=== PATIENT | male | born 1985 | race Caucasian/White ===

== ENCOUNTER → 2020-07-02 08:20 | Outpatient (CLI) | payer BC, SELFPAY ==
[2020-05-15 08:38] VITALS: BMI 30.1
--- NOTE | 2020-07-02 09:04 | RAD_ITS ---
STUDY: X-RAY CHEST REASON FOR EXAM: Male, 35 years old. F/U YEARLY CXR. PATIENT STATES HE HAS A HISTORY OF MELANOMA 4 YRS AGO. TECHNIQUE: PA and lateral views of the chest. COMPARISON: None. FINDINGS: The lungs are clear and expanded. There is no demonstrated pleural abnormality. Normal size heart. Normal mediastinum and johanna. Normal visualized pulmonary arteries. Normal visualized aortic arch and descending thoracic aorta. Normal visualized thoracic spine. Normal visualized ribs, clavicles, and shoulders. There is no demonstrated abnormality of the visualized soft tissue structures of the upper abdomen. RAD/Chest PA and Lateral IMPRESSION: Normal x-ray examination of the chest. Electronically Signed: Madi Yañez MD at 16:50 EDT Tel , Service support ,
[2020-07-02 10:38] LABS: AST(SGOT) 14 U/L (15-37); Alanine Aminotransfer ALT/SGPT 26 U/L (16-61); Alkaline Phosphatase 59 U/L (45-117); Bilirubin, Direct 0.15 mg/dL (0.00-0.30); LDH 155 U/L (87-241)
[2020-07-04 20:07] LABS: Alkaline Phosphatase, Serum 55 IU/L (39-117); Bone Fraction 58 % (12-68); Liver Fraction 40 % (13-88)
[2020-07-05 02:25] LABS: Intestinal Fraction 1 % (0-18)
== END ==
PROVIDERS: Referring Provider Surgery; Visit Provider Surgery
DX: Z85.820 Personal history of malignant melanoma of skin (principal)
CPT/HCPCS: 36415; 71046; 82247; 82248; 83615; 84075; 84080; 84450; 84460

== ENCOUNTER → 2020-12-06 | Outpatient (CLI) | payer BC, SELFPAY ==
--- NOTE | 2020-12-06 | VAS_PTH ---
PATIENT: JORGE L BETTS LOC: [facility] U#:[id number] AGE/SX: 35/M ROOM: RE12/06/[address]: Dr. Paxton Escobedo MD : [id number] BED: DIS: 12/06/2020 SPEC #: [id number] RECD: 12/06/20 10:53 STATUS: DEBORAH SILVINA #: [id number] SOPHY: 12/06/20 00:[address]: Paxton Escobedo DEPT: SURGICAL PATHOLOGY RECD BY: Ernst Ramirez ENTERED: 12/06/20 11:24 SP TYPE: VAS OTHR DR: Bernadine Mcelroy, AUGUSTA-C Tissues: A - Vas deferens, NOS B - Vas deferens, NOS Procedures: Surgery Specimen Level II HEADER OPERATION: Bilateral partial vasectomy PRE-OP DIAGNOSIS: Sterilization TISSUE SUBMITTED: A - Right vas deferens, B - Left vas deferens MICROSCOPIC DIAGNOSIS A. Right vas deferens, segmental vasectomy: Complete cross-section of vas deferens with no pathologic change. B. Left vas deferens, segmental vasectomy: Complete cross-section of vas deferens with no pathologic change. AM:amalia 12/09/2020 MICROSCOPIC DESCRIPTION Slides are reviewed. GROSS DESCRIPTION A - Received is one container designated right vas deferens. The specimen consists of a cylindrical segment of pink-adamson soft tissue measuring 0.5 cm in length and 0.2 cm in maximum diameter. The specimen is serially sectioned and totally submitted in one cassette. B - Received is one container designated left vas deferens. The specimen consists of a cylindrical segment of pink-adamson soft tissue measuring 0.8 cm in length and 0.2 cm in maximum diameter. The specimen is serially sectioned and totally submitted in one cassette. / AM:amalia 12/06/20 TC:4 CPT: 73582 x2
== END | disposition home or self-care (01) ==
LOC: LABSPEC 11:09
PROVIDERS: PCP Nurse Practitioner Family; Referring Provider Surgery; Visit Provider Surgery
DX: Z30.2 Encounter for sterilization (principal)
CPT/HCPCS: 88302

== ENCOUNTER 2021-09-21 18:46 | Inpatient (IN) | payer BC, SELFPAY ==
[2021-09-21] VITALS (7 sets, daily range): BP systolic 125–136; BP diastolic 73–99; PULSE 83–101; RESP 12–27; TEMP 36.5–37.2; O2SAT 88–94; BMI 28.4; BMI 28.5
--- NOTE | 2021-09-21 19:15 | RAD_ITS ---
STUDY: X-RAY CHEST REASON FOR EXAM: Male, 36 years old. cough TECHNIQUE: Frontal portable view of the chest COMPARISON: 02 July 2020 FINDINGS: Pulmonary volumes are extremely low. There are multifocal dense airspace nodular opacities. There is no pneumothorax, cardiac megaly, pulmonary edema or pleural effusions. RAD/Chest 1 View (Portable) IMPRESSION: Multifocal viral pneumonia, probably Covid. Electronically Signed: Kathy Lo MD at 19:57 EST Tel , Service support ,
--- NOTE | 2021-09-21 19:15 | EKG12_ITS ---
Test Reason : SOB Blood Pressure : / mmHG Vent. Rate : 099 BPM Atrial Rate : 099 BPM P-R Int : 144 ms QRS Dur : 092 ms QT Int : 342 ms P-R-T Axes : 030 -15 026 degrees QTc Int : 438 ms Normal sinus rhythm Normal ECG Confirmed by MELANIE CAMPBELL, VANGIE ([id number]), editor sound FRANKIE BOYD ([id number]) on 09/22/2021 11:16:14 AM Referred By: POOJA Confirmed By:VANGIE NAVARRO MD
--- NOTE | 2021-09-21 19:22 | CT_ITS ---
STUDY: CTA CHEST REASON FOR EXAM: Male, 36 years old. Dyspnea history of melanoma with skin graft RADIATION DOSAGE (If Supplied By Facility): CTDIvol = ( 13.81 ) mGy, DLP = ( 551.75 ) mGycm TECHNIQUE: The examination was performed with the intravenous administration of IV 100mL Isovue-370. Post-processing of the angiographic images was performed, with multiplanar reformation and 3D reconstruction. Individualized dose optimization techniques were used for this CT. COMPARISON: None. FINDINGS: There is no acute or chronic pulmonary embolism. Pulmonary arteries are mildly enlarged. Aorta is of normal caliber. There is also extensive multifocal nodular dense mixed groundglass opacities and consolidations. Pulmonary volumes are low. Osseous structures are intact. Abdominal structures are unremarkable. CT/CTA Chest W/WO Contrast IMPRESSION: 1. No pulmonary embolism. 2. Extensive acute viral pneumonia, probably Covid. 3. Mild chronic pulmonary arterial hypertension. Electronically Signed: Kathy Lo MD at 20:11 EST Tel , Service support ,
--- NOTE | 2021-09-21 19:23 | ED.VIS.DYS ---
HPI History of Present Illness Chief Complaint: Shortness of Breath Narrative Narrative: 36-year-old male on day 7 of Covid symptoms. He states his fever and chills and body aches have all resolved. He does not have any chest pain. He does have shortness of breath with exertion. He notes his pulse ox has been down to 87 when ambulating. As he walked to the ER he was 83% on room air. Patient states that other than some mild diarrhea he otherwise feels fine. Patient states he has no significant medical problems. [facility] Medical History Anxiety Dysplastic nevus of trunk Encounter for observation for suspected malignant neoplasm Encounter for sterilization Former smoker Melanoma in situ Neoplasm of skin of abdomen Neoplasm of skin of upper arm Neoplasm of unspecified behavior of bone, soft tissue, and skin Personal history of diseases of skin or subcutaneous tissue Personal history of malignant melanoma of skin Home Medications dexamethasone 6 mg PO DAILY #7 tab 09/21/21 [Rx Last Taken Unknown] escitalopram oxalate 20 mg PO DAILY 09/21/21 [History Last Taken Unknown] Allergy/AdvReac Type Severity Reaction Status Date / Time Penicillins [PCN] Allergy Unknown Verified 09/21/21 18:49 Family History Mother Anxiety Father Anxiety Hypertension Sister Anxiety Surgical History History of melanoma excision History of skin graft History of vasectomy (~11/2020) Hx of wisdom tooth extraction Social History Smoking Status: Former smoker second hand exposure: Yes alcohol intake: current alcohol intake frequency: a few times a week substance use type: does not use caffeine: Yes what type of physical activity do you participate in: other seatbelt use: always additional social history: SUN EXPOSURE: OCCASIONALLY ROS ROS ED Constitutional Constitutional ED: Denies chills or fever(s) Eyes Eyes: Denies blurry vision or diplopia ENT ENT ED: Denies rhinorrhea or sore throat Cardiovascular Cardiovascular: Denies chest pain or palpitations Respiratory/Chest Respiratory/Chest: Reports dyspnea and dyspnea on exertion Gastrointestinal Gastrointestinal: Reports diarrhea; Denies abdominal pain, nausea or vomiting Genitourinary Genitourinary ED: Denies dysuria or hematuria Musculoskeletal Musculoskeletal: Denies arthralgias or myalgias Integumentary Denies Abrasions or rash Neurologic Neurologic: Denies headache(s) or paresthesias EXAM Physical Exam Const Vital Signs: 09/21/21 18:47 09/21/21 19:18 09/21/21 19:23 Temperature 97.7 F L Temperature Source Temporal Pulse Rate 101 H Respiratory Rate 18 Respiratory Effort Short of Breath Respiratory Depth Normal Respiratory Pattern Tachypnea Blood Pressure 125/99 H Blood Pressure Mean 107 Pulse Ox 94 88 Oxygen Delivery Method Room Air Room Air Room Air Oxygen Flow Rate (L/min) 09/21/21 20:13 09/21/21 21:08 Temperature 97.7 F L Temperature Source Temporal Pulse Rate 93 89 Respiratory Rate 19 H 17 Respiratory Effort Respiratory Depth Respiratory Pattern Blood Pressure 135/81 H 136/80 H Blood Pressure Mean 99 98 Pulse Ox 92 91 Oxygen Delivery Method Nasal Cannula Nasal Cannula Oxygen Flow Rate (L/min) 2 2 Positive well nourished General Appearance ED: NAD; Negative for pallor HEENT Reports moist mucous membranes atraumatic Eyes PERRL and EOMs intact bilaterally Resp normal respiratory effort Auscultation: rales bilateral Cardio regular rate and regular rhythm GI non-tender Palpation: soft Neuro oriented x3 and CN's II-XII intact bilaterally Sensorium / Orientation: alert and oriented to person Psych mental status grossly normal Thought Process: normal thought process Skin General Skin Exam: Negative for jaundice or pallor MDM MDM MDM Narrative Medical decision making narrative: Patient presenting with Covid symptoms on day 7. He has hypoxic wearable document this. His CBC is unremarkable. Renal function is normal. His potassium slightly low at 3.2. His AST is 104 and ALT is 76. Troponin negative at 5. EKG on my interpretation shows a sinus rhythm with a ventricular rate of 99 bpm without ischemic change. Chest x-ray on my interpretation shows bilateral multilobar pneumonia. This is consistent with Covid. Radiologist does agree. D-dimer is elevated at 0.68. CTA of the chest shows pulmonary infiltrates consistent with Covid however no PEs or dissection. I did attempt to send the patient home with oxygen and dexamethasone however we are unable to set this up from the ER due to shortage of oxygen concentrator's. At this point I spoke with the hospitalist about admission for the patient. He was given a dose of dexamethasone in the ER. Patient admitted in stable condition. Impression: 1. COVID-19 pneumonitis 2. Hypoxic respiratory failure Lab Data Attestation: I reviewed the patient's lab results. Labs: Laboratory Results - last 24 hr 09/21/21 09/21/21 09/21/21 19:30 19:30 19:30 WBC 6.2 RBC 5.47 Hgb 16.4 Hct 47.3 MCV 86.5 MCH 30.0 MCHC 34.7 RDW Std Deviation 40.5 RDW Coeff of Rich 12.8 Plt Count 141 L MPV 11.5 Immature Gran % (Auto) 0.500 Neut % (Auto) 75.6 H Lymph % (Auto) 17.6 L [place] % (Auto) 6.0 Eos % (Auto) 0.0 Baso % (Auto) 0.3 Absolute Neuts (auto) 4.7 Absolute Lymphs (auto) 1.09 Nucleated RBC % 0 D-Dimer Quant (PE/DVT) 0.68 H* Sodium 139 Potassium 3.2 L Chloride 105 Carbon Dioxide 26.0 Anion Gap 8 BUN 15 Creatinine 0.92 Estim Creat Clear Calc 137.59 Est GFR (MDRD) Af Amer 120 Est GFR (MDRD) Non-Af 99 BUN/Creatinine Ratio 16.3 Glucose 131 H Calcium 8.6 Total Bilirubin 0.40 AST 104 H ALT 76 H Alkaline Phosphatase 53 Troponin I High Sens 9 Total Protein 7.4 Albumin 3.3 Globulin 4.1 Albumin/Globulin Ratio 0.8 L Radiography Diagnostic Testing: Clinical Impression(s) from Imaging Studies Chest X-Ray 09/21/21 19:15 IMPRESSION: Multifocal viral pneumonia, probably Covid. Electronically Signed: Kathy Lo MD at 19:57 EST Tel , Service support , Chest CTA 09/21/21 19:22 IMPRESSION: 1. No pulmonary embolism. 2. Extensive acute viral pneumonia, probably Covid. 3. Mild chronic pulmonary arterial hypertension. Electronically Signed: Kathy Lo MD at 20:11 EST Tel , Service support , Discharge Plan Triage Chief Complaint: Shortness of Breath ED Provider: Soham Carmichael Dx/Rx/DC Orders Instructions: Coronavirus Disease 2019 (COVID-19): Caring for Yourself or Others Prescriptions: New dexamethasone 6 mg tablet 6 mg PO DAILY Qty: 7 RF: 0 No Action escitalopram oxalate 20 mg tablet 20 mg PO DAILY RF: 0 Primary Care Provider: Ray Cruz Referrals: Ray Cruz MD [Primary Care Provider] - Disposition Disposition: Home, Self Care
[2021-09-21 19:55] LABS: Absolute Lymphocyte Count 1.09 X10^3/uL (0.83-4.51); Absolute Neutrophil Count 4.7 X10^3/uL (2.0-7.7); Basophil# 0.02 X10^3/uL; Basophil% 0.3 % (0-1); Hematocrit 47.3 % (40-54); Hemoglobin 16.4 g/dL (13.0-16.5); Lymphocyte # 1.09 X10^3/ul (0.83-4.51); Lymphocyte % 17.6 % (19-41); Mean Corp Hgb Conc 34.7 g/dL (32-36); Mean Corpuscular Volume 86.5 fL (80-94); Mean Platelet Vol. 11.5 fl (6.2-12.0); Monocyte# 0.37 X10^3/uL; NRBC Flagged by Analyzer 0 % (0-5); Neutrophil # 4.69 X10^3/uL (2.7-7.7); Neutrophil % 75.6 % (47-70); Platelet Count 141 K/mm3 (150-450); RBC Distribution Width CV 12.8 % (11.6-14.6); RBC Distribution Width SD 40.5 fl (35.1-43.9); Red Blood Count 5.47 M/mm3 (4.6-6.2); White Blood Count 6.2 K/mm3 (4.4-11.0)
[2021-09-21 20:14] LABS: ALB/GLOB Ratio 0.8 RATIO (0.9-2.4); AST(SGOT) 104 U/L (15-37); Alanine Aminotransfer ALT/SGPT 76 U/L (16-61); Albumin, Serum 3.3 g/dL (3.2-5.0); Alkaline Phosphatase 53 U/L (45-117); Anion Gap 8 (5-15); BUN 15 mg/dL (7-18); BUN/Creat Ratio 16.3 RATIO (10-20); Calcium,Total 8.6 mg/dL (8.5-10.1); Chloride 105 mmol/L (98-107); Creatinine, Serum 0.92 mg/dL (0.70-1.30); EST Glomerular Filtration Rate 99 mL/min (>60); Est Glom Filt Rate - Afr Amer 120 mL/min (>60); Estimated Creatinine Clearance 137.59 ml/min; Globulin 4.1 g/dL (2.2-4.2); Glucose 131 mg/dL (74-106); Potassium 3.2 mmol/L (3.5-5.1); Protein, Total 7.4 g/dL (6.4-8.2); Sodium Level 139 mmol/L (136-145); Troponin-I HS 9 pg/mL (3.0-78.0)
[2021-09-21 20:19] LABS: D-Dimer Quantitative (DVT/PE) 0.68 FEU/ug/m (0.27-0.49)
[2021-09-21] MEDS: dexAMETHasone 10 MG/ML Vial 6 MG IV (20:31)
--- NOTE | 2021-09-21 20:44 | ED.RN ---
I WAS ASKED TO CALL AROUND AND SEE ABOUT HOME OXYGEN FOR THIS PATIENT. I CALLED [facility] [place], AND THEY WERE CLOSED. I CALLED [facility] WITH [facility] AND ASKED IF THEY HAD A AFTER HOURS CALL NUMBER FOR THEM AND THEY DIDN'T. THEY HAD A BICYCLE REPAIR TECHNICIAN FROM [facility] [place] IN THE ER AND THEY SAID THEY DIDN'T HAVE ANYTHING AVAILABLE WELL. WE ALSO TRIED TO CALL [facility] AND THEY SAID THAT THEY ONLY DO [facility], THEY ASKED IF THE PATIENT COULD MEET THEM TO GET THE OXYGEN TANK AND ALL THE HOME EQUIPMENT BUT WOULD NOT DELIVER IT OR SET IT UP. I TALKED TO THE CHARGE NURSE AND THE DOCTOR AND THEY BOTH SAID THAT IT DID NOT SOUND SAFE OR PROFESSIONAL. WE CALLED THESE OTHER PLACES BECAUSE [facility] DID NOT HAVE ANY CONCENTRATORS.
--- NOTE | 2021-09-21 21:54 | HP.PCM.HOS_ITS ---
HPI - General General Date of Admission: 09/21/21 Date of Service: 09/21/21 Chief Complaint: Shortness of breath HPI Narrative JORGE L BETTS, is a 36 M who presents with steady shortness of breath started a day and a half before presentation. Associated with symptoms is occasional cough productive for sputum with rainbow colors. He takes some reddish cough medicine at home and he thinks that it may be contributing to the color of his sputum. His symptoms started about 7 days prior to presentation and about 5 days prior to presentation he had a rapid Covid test at [facility] that returned positive. He denies anosmia or dysgeusia. He denies anorexia. At home his oxygen saturation was 89%. Imaging department doctor reported that on presentation with ambulation patient oxygen saturation was 83%. He improved with oxygen however arrangement for home oxygen could not be successfully made [facility] Medical History Anxiety Dysplastic nevus of trunk Encounter for observation for suspected malignant neoplasm Encounter for sterilization Former smoker Melanoma in situ Neoplasm of skin of abdomen Neoplasm of skin of upper arm Neoplasm of unspecified behavior of bone, soft tissue, and skin Personal history of diseases of skin or subcutaneous tissue Personal history of malignant melanoma of skin Home Medications dexamethasone 6 mg PO DAILY #7 tab 09/21/21 [Rx Last Taken Unknown] escitalopram oxalate 20 mg PO DAILY 09/21/21 [History Last Taken 09/20/21] Allergy/AdvReac Type Severity Reaction Status Date / Time Penicillins [PCN] Allergy Unknown Verified 09/21/21 18:49 Family History Mother Anxiety Father Anxiety Hypertension Sister Anxiety Surgical History History of melanoma excision History of skin graft History of vasectomy (~11/2020) Hx of wisdom tooth extraction Social History Smoking Status: Former smoker second hand exposure: Yes alcohol intake: current alcohol intake frequency: a few times a week substance use type: does not use caffeine: Yes what type of physical activity do you participate in: other seatbelt use: always additional social history: SUN EXPOSURE: OCCASIONALLY ROS ROS Narrative Constitutional: Denies fever, chills, fatigue, anorexia and change in weight Eyes: Denies blurry vision, change in eye color, change in vision, discharge from eye(s), double vision, erythema, eye pain, loss of vision or other HEENT: Denies abnormal hearing, dysphagia, ear pain, epistaxis, headache(s), hearing loss, nasal congestion, nasal discharge, post nasal drip, sinus pressure, sore throat or other Cardiovascular: Denies chest pain or palpitations. Respiratory/Chest: Reports shortness of breath with productive cough. Denies wheezes. Gastrointestinal: Denies abdominal pain, coffee ground emesis, constipation, diarrhea, dyspepsia, hematemesis, hematochezia, loose stools, melena, nausea, vomiting or other Genitourinary: Denies burning urination, difficulty urinating, dysuria, hematuria, nocturia, urinary frequency, urinary hesitancy, urinary incontinence, urinary urgency or other Musculoskeletal: Denies arthralgias, back pain, joint pain, joint stiffness, joint swelling, myalgias, neck pain or other Neurologic: Denies abnormal gait, abnormal speech, confusion, disequilibrium, dizziness, focal weakness, headache(s), numbness, paresthesias, seizure-like activity, seizures, syncope, tingling, tremor(s) or other Psychiatric: Denies anxiety, depression, homicidal ideation, suicidal ideation or other Endocrinology: Denies change in body appearance, cold intolerance, excessive sweating, heat intolerance, polydipsia, polyuria or other Hematologic/Lymphatic: Denies anemia, easy bleeding, easy bruising, lymphadenopathy or other Integumentary: Denies rashes Allergic/Immunologic: Denies rhinitis, hives, eczema, asthma or other Vital Signs Vital Signs Vital Signs: 09/21/21 18:47 09/21/21 19:18 09/21/21 19:23 Temperature 97.7 F L Temperature Source Temporal Pulse Rate 101 H Respiratory Rate 18 Respiratory Effort Short of Breath Respiratory Depth Normal Respiratory Pattern Tachypnea Blood Pressure 125/99 H Blood Pressure Mean 107 Pulse Ox 94 88 Oxygen Delivery Method Room Air Room Air Room Air Oxygen Flow Rate (L/min) 09/21/21 20:13 09/21/21 21:08 09/21/21 21:52 Temperature 97.7 F L 98.9 F Temperature Source Temporal Oral Pulse Rate 93 89 86 Respiratory Rate 19 H 17 27 H Respiratory Effort Respiratory Depth Respiratory Pattern Blood Pressure 135/81 H 136/80 H 136/80 H Blood Pressure Mean 99 98 98 Pulse Ox 92 91 92 Oxygen Delivery Method Nasal Cannula Nasal Cannula Oxygen Flow Rate (L/min) 2 2 Weight Weight: 106 kg Body Mass Index (BMI) 28.4 Physical Exam Narrative Physical exam: General: Well-nourished, well-developed. Head: Normocephalic, atraumatic, no tenderness Eyes: PERRLA, EOMI ENT, no trauma, moist mucous membranes, no rhinorrhea Neck: Nontender, full range of motion, no spinal tenderness, deformities, step- off CVS: Regular rate and rhythm. S1-S2 present. No murmur, gallop or rub. Respiratory : Tachypnea, Rales, no wheezes. No chest wall tenderness. C Abdomen: Soft, nontender, nondistended, normal bowel sounds, no masses : Deferred Back: Nontender, no CVA tenderness, no midline spinal tenderness, deformities, step-offs Extremities: Nontender full range of motion, no trauma Skin: Normal color, no trauma, abrasions Neuro: Alert, oriented, cranial nerves II through XII grossly intact. Psychiatry: Normal mood. Normal affect. Not depressed. Not anxious. Results Lab / Micro Data Result Diagrams: 09/21/21 19:30 09/21/21 19:30 Labs: Laboratory Results - last 24 hr 09/21/21 19:30: WBC 6.2, RBC 5.47, Hgb 16.4, Hct 47.3, MCV 86.5, MCH 30.0, MCHC 34.7, RDW Std Deviation 40.5, RDW Coeff of Rich 12.8, Plt Count 141 L, MPV 11.5, Immature Gran % (Auto) 0.500, Neut % (Auto) 75.6 H, Lymph % (Auto) 17.6 L, [place] % (Auto) 6.0, Eos % (Auto) 0.0, Baso % (Auto) 0.3, Absolute Neuts (auto) 4.7, Absolute Lymphs (auto) 1.09, Nucleated RBC % 0 09/21/21 19:30: D-Dimer Quant (PE/DVT) 0.68 H* 11/14/21 19:30: Sodium 139, Potassium 3.2 L, Chloride 105, Carbon Dioxide 26.0, Anion Gap 8, BUN 15, Creatinine 0.92, Estim Creat Clear Calc 137.59, Est GFR (MDRD) Af Amer 120, Est GFR (MDRD) Non-Af 99, BUN/Creatinine Ratio 16.3, Glucose 131 H, Calcium 8.6, Total Bilirubin 0.40, AST 104 H, ALT 76 H, Alkaline Phosphatase 53, Troponin I High Sens 9, Total Protein 7.4, Albumin 3.3, Globulin 4.1, Albumin/Globulin Ratio 0.8 L Radiology Impression Chest X-Ray 09/21/21 19:15 IMPRESSION: Multifocal viral pneumonia, probably Covid. Electronically Signed: Kathy Lo MD at 19:57 EST Tel , Service support , Chest CTA 09/21/21 19:22 IMPRESSION: 1. No pulmonary embolism. 2. Extensive acute viral pneumonia, probably Covid. 3. Mild chronic pulmonary arterial hypertension. Electronically Signed: Kathy Lo MD at 20:11 EST Tel , Service support , Assessment & Plan Assessment/Plan (1) Pneumonia due to COVID-19 virus: (2) Acute hypoxemic respiratory failure due to COVID-19: PLAN: Acute hypoxemic respiratory failure secondary to SARS- COV 2 Reportedly her oxygen saturation was 88% on room air at the emergency department. Patient required 2 L of nasal cannula oxygen. Oxygen supplementation continued. Positive coronavirus test outpatient. Covid PCR D-dimer was mildly elevated at 0.68. Chest x-ray and chest CTA was consistent with Covid pneumonia. No atrial dissection or PE was found. Received Decadron emergency department and continued. AST and ALT is mildly elevated. Creatinine clearance is more than 30. We will start patient on remdesivir. Case management consult for home oxygen. Tylenol for fever Mucinex ordered Hypokalemia Review of CMP showed potassium of 3.2. Replace. Trend CMP. DVT prophylaxis Subcutaneous Lovenox ordered. Charges/Coding Visit Charges Inpatient E&M: 69493 Init Hosp L3
[2021-09-21 23:28] LABS: Probe Check PASS; Specimen Processing Control PASS
[2021-09-22] MEDS: guaiFENesin 1,200 MG Tablet 1200 MG PO ×2 (00:36→09:12)
[2021-09-22] MEDS: Potassium Chloride Oral Tablet 20 MEQ 60 MEQ PO (00:36)
[2021-09-22] MEDS: 0.9% Saline Lock 10 ML Syringe IV (00:36)
[2021-09-22] MEDS: Enoxaparin 30 MG/0.3 ML Syringe SC ×2 (00:38→09:12)
[2021-09-22 05:31] VITALS: BP 120/78; PULSE 81; RESP 18; TEMP 36; O2SAT 94
[2021-09-22 06:27] LABS: Absolute Lymphocyte Count 0.73 X10^3/uL (0.83-4.51); Absolute Neutrophil Count 1.9 X10^3/uL (2.0-7.7); Hematocrit 45.8 % (40-54); Hemoglobin 16.2 g/dL (13.0-16.5); Lymphocyte # 0.73 X10^3/ul (0.83-4.51); Lymphocyte % 25.3 % (19-41); Mean Corp Hgb Conc 35.4 g/dL (32-36); Mean Corpuscular Hgb 30.8 pg (27.0-32.0); Mean Corpuscular Volume 87.1 fL (80-94); Monocyte# 0.22 X10^3/uL; Monocyte% 7.6 % (0-10); NRBC Flagged by Analyzer 0 % (0-5); Neutrophil # 1.92 X10^3/uL (2.7-7.7); Neutrophil % 66.8 % (47-70); Platelet Count 157 K/mm3 (150-450); RBC Distribution Width CV 12.9 % (11.6-14.6); Red Blood Count 5.26 M/mm3 (4.6-6.2); White Blood Count 2.9 K/mm3 (4.4-11.0)
[2021-09-22 07:31] LABS: ALB/GLOB Ratio 0.7 RATIO (0.9-2.4); AST(SGOT) 105 U/L (15-37); Alanine Aminotransfer ALT/SGPT 85 U/L (16-61); Albumin, Serum 3.1 g/dL (3.2-5.0); Alkaline Phosphatase 51 U/L (45-117); Anion Gap 6 (5-15); BUN 15 mg/dL (7-18); Chloride 104 mmol/L (98-107); Creatinine, Serum 0.94 mg/dL (0.70-1.30); EST Glomerular Filtration Rate 97 mL/min (>60); Est Glom Filt Rate - Afr Amer 117 mL/min (>60); Estimated Creatinine Clearance 134.66 ml/min; Globulin 4.3 g/dL (2.2-4.2); Glucose 151 mg/dL (74-106); Potassium 3.9 mmol/L (3.5-5.1); Protein, Total 7.4 g/dL (6.4-8.2); Sodium Level 138 mmol/L (136-145)
[2021-09-22 08:23] VITALS: O2SAT 94
[2021-09-22] MEDS: Escitalopram Oxalate 20 MG Tablet PO (09:12)
[2021-09-22] MEDS: dexAMETHasone 4 MG Tablet 6 MG PO (09:12)
[2021-09-22 09:24] VITALS: BP 135/74; PULSE 90; RESP 18; TEMP 36.6; O2SAT 93
[2021-09-22 09:29] VITALS: O2SAT 87; O2SAT 90; O2SAT 92
--- NOTE | 2021-09-22 09:38 | CASEMGMT ---
Addendum entered by Marivel Lawson 09/22/21 10:38: Pt qualifies for home O2, tc to [facility] neither have O2 concentrators. TC to [facility] in [place] and left , awaiting returned call. Original Note: NEERU PARRY Assessment: Face to Face with pt for initial transition planning/care coordination assessment. NEERU PARRY introduced self and role at [facility], pt voices understanding and consents to assessment. Pt is A/O x4 and answers all questions appropriately at this time. Pt sitting up in bed with O2 on in no distress. Care providers, pharmacy, and demographics verified/updated. Admitting Dx: COVID PCP:Nancy Specialists: Pt denies. Preferred Pharmacy: [facility] Insurance: [employer] Prescription Benefit: yes LW/HPOA: Pt states that he has a LW/DPOA and his DPOA is his . He is aware that this is not on file at [facility] and he may bring in to be scanned into his chart. LNOK: Payton Eckert, Living Arrangements: Pt lives with and two kids in a single story house with 2 steps to enter. Pt reports he is I in ADL's and denies concerns at home. Transportation: Pt drives self and denies concerns with transportation. DME/HHC/SNF: Pt has a pulse ox at home. Pt denies previous HHC or SNF stays. Pt was first tested with a home test for COVID, then he said he was tested at [facility]. Pt states his does also have COVID. bedroom and bathroom. Pt does have family who can Pt has no preference on DME company should he need O2 at home. Pt states no concerns with going home at time of dc. Pt states no further concerns/needs. CM to follow. Advised pt to ask CM if any further question/concerns/needs arise, voices understanding. Pt Goal: Home Plan: Home
--- NOTE | 2021-09-22 11:10 | PCM.DC.SUM ---
Providers Date of Admission: 09/21/21 Primary Care Physician: Dr. Ray Cruz MD Reason For Visit: ACUTE HYPOXEMIC RESPIRATORY FAILURE SECONDARY TO Diagnosis Discharge Diagnosis (1) Pneumonia due to COVID-19 virus: Status: Acute Code(s): U07.1 - COVID-19; J12.82 - Pneumonia due to coronavirus disease 2019 (2) Acute hypoxemic respiratory failure due to COVID-19: Status: Acute Code(s): U07.1 - COVID-19; J96.01 - Acute respiratory failure with hypoxia Medications at Discharge Home Medications dexamethasone 6 mg PO DAILY #7 tab 09/21/21 escitalopram oxalate 20 mg PO DAILY 09/21/21 Hospital Course Operations None Procedures None Summary of Care Provided Minutes Spent on Discharge: 40 Hospital Course: Patient is a 36-year-old male with no significant past medical history was admitted through the ED on 09/21/2021 with a complaint of shortness of breath with associated productive cough. His symptoms started about 7 days prior to admission and he had tested positive for COVID-19 about 5 days prior to this admission. He was unvaccinated. He was saturating at 89% on room air with ambulation this dropped to 83%. Patient had apparently received monoclonal antibodies on outpatient basis. Oxygen could not be arranged for him in the ED and so he was admitted to be managed for acute hypoxic respiratory failure due to COVID-19 pneumonia. Patient remained stable and he did not decompensate. He required 2 L of oxygen during admission and felt well. He remained stable and was discharged home on 09/22/2021 with 2 L of oxygen which was determined by walking pulse ox. He is follow-up with his primary care doctor in 1 to 2 weeks. Patient was counseled to remain in self-isolation for till 10/04/2021 to give a total of 20 days of self-isolation since symptoms started. Patient was strongly counseled to consider getting the COVID-19 vaccine once he had recovered. Patient was seen and examined prior to discharge. He felt well and had no complaints. Review of systems otherwise negative. Labs and vitals reviewed. Medication reviewed and reconciled. Physical Exam Const alert, oriented x3 and no apparent distress General Appearance: cooperative, comfortable and well kempt Orientation / Consciousness: awake Exam Limitations: no limitations HEENT normocephalic, head/scalp atraumatic and moist oral mucous membranes Eyes PERRL, EOMs intact bilaterally and conjunctivae normal Neck no lymphadenopathy, supple and no JVD Resp Resp Narrative: mildly diminished breath sounds bibasally. No wheezes or crackles. On 2L of oxygen. Cardio regular rate, regular rhythm, S1 normal heart sound, S2 normal heart sound and no murmurs GI normal to inspection, nondistended, normoactive bowel sounds, soft to palpation, non-tender and non-distended Extremity normal to inspection, full ROM and no clubbing, cyanosis or edema Skin no rashes or lesions noted, no wounds and skin turgor normal Neuro oriented x3, CN's II-XII intact bilaterally and moves all extremities Sensorium / Orientation: awake and alert Psych affect normal Weight / BMI Weight Weight: 234 lb 5.622 oz Body Mass Index (BMI) 28.5 ABG / Lab / Microbiology Data Result Diagrams: 09/22/21 06:04 09/22/21 06:04 Laboratory: Laboratory Results - last 24 hr 09/21/21 19:30: WBC 6.2, RBC 5.47, Hgb 16.4, Hct 47.3, MCV 86.5, MCH 30.0, MCHC 34.7, RDW Std Deviation 40.5, RDW Coeff of Rich 12.8, Plt Count 141 L, MPV 11.5, Immature Gran % (Auto) 0.500, Neut % (Auto) 75.6 H, Lymph % (Auto) 17.6 L, [place] % (Auto) 6.0, Eos % (Auto) 0.0, Baso % (Auto) 0.3, Absolute Neuts (auto) 4.7, Absolute Lymphs (auto) 1.09, Nucleated RBC % 0 09/21/21 19:30: D-Dimer Quant (PE/DVT) 0.68 H* 09/21/21 19:30: Sodium 139, Potassium 3.2 L, Chloride 105, Carbon Dioxide 26.0, Anion Gap 8, BUN 15, Creatinine 0.92, Estim Creat Clear Calc 137.59, Est GFR (MDRD) Af Amer 120, Est GFR (MDRD) Non-Af 99, BUN/Creatinine Ratio 16.3, Glucose 131 H, Calcium 8.6, Total Bilirubin 0.40, AST 104 H, ALT 76 H, Alkaline Phosphatase 53, Troponin I High Sens 9, Total Protein 7.4, Albumin 3.3, Globulin 4.1, Albumin/Globulin Ratio 0.8 L 09/21/21 22:16: COVID-19 (NADYA) Positive 09/22/21 06:04: WBC 2.9 L, RBC 5.26, Hgb 16.2, Hct 45.8, MCV 87.1, MCH 30.8, MCHC 35.4, RDW Std Deviation 41.0, RDW Coeff of Rich 12.9, Plt Count 157, MPV 11.0, Immature Gran % (Auto) 0.300, Neut % (Auto) 66.8, Lymph % (Auto) 25.3, [place] % (Auto) 7.6, Eos % (Auto) 0.0, Baso % (Auto) 0.0, Absolute Neuts (auto) 1.9 L, Absolute Lymphs (auto) 0.73 L, Nucleated RBC % 0 09/22/21 06:04: Sodium 138, Potassium 3.9, Chloride 104, Carbon Dioxide 28.0, Anion Gap 6, BUN 15, Creatinine 0.94, Estim Creat Clear Calc 134.66, Est GFR (MDRD) Af Amer 117, Est GFR (MDRD) Non-Af 97, BUN/Creatinine Ratio 16.0, Glucose 151 H, Calcium 9.0, Total Bilirubin 0.40, AST 105 H, ALT 85 H, Alkaline Phosphatase 51, Total Protein 7.4, Albumin 3.1 L, Globulin 4.3 H, Albumin/Globulin Ratio 0.7 L Radiography Diagnostic Testing: Radiology Impression Chest X-Ray 09/21/21 19:15 IMPRESSION: Multifocal viral pneumonia, probably Covid. Electronically Signed: Kathy Lo MD at 19:57 EST Tel , Service support , Chest CTA 09/21/21 19:22 IMPRESSION: 1. No pulmonary embolism. 2. Extensive acute viral pneumonia, probably Covid. 3. Mild chronic pulmonary arterial hypertension. Electronically Signed: Kathy Lo MD at 20:11 EST Tel , Service support , D/C Instructions Discharge Diet: No restrictions Discharge Activity: Return to Normal Activity Weight Bearing Status: Weight bearing as tolerated Call your doctor if you observe: Fever of 101 or Higher, Shortness of breath, Dizziness, Swelling in the ankles, Chest pain and Increased palpitations (irregular heartbeat) Meaningful Use Info Meaningful Use Diagnoses (Choose all that apply): None applicable Discharge Plan Admission Admit Date/Time: 09/21/21 21:41 Primary Reason for Your Visit: covid 19 infection Attending Provider: Franca Castro Primary Care Provider: Ray Cruz Instructions Patient Instructions: Coronavirus Disease 2019 (COVID-19): Caring for Yourself or Others Additional Instructions / Restrictions: remain in self isolation till 10/04/2021 to complete 20 days of self isolation. Discharge Orders/Prescriptions Prescriptions: New dexamethasone 6 mg tablet 6 mg PO DAILY Qty: 7 RF: 0 Continued escitalopram oxalate 20 mg tablet 20 mg PO DAILY RF: 0 Referrals / Follow Up: Ray Cruz MD [Primary Care Provider] - Within 2 Weeks Disposition Disposition (needs filled in before D/C Order can be placed): Home, Self Care Charges/Coding Visit Charges Inpatient E&M: [id number] Disch Hosp
[2021-09-22 14:48] VITALS: BP 119/75; PULSE 89; RESP 16; TEMP 36.2; O2SAT 92
--- NOTE | 2021-09-22 15:08 | PHA.DC.MR ---
Pharmacy Service has performed discharge medication reconciliation for this patient. The patient's discharge medication list was reviewed for discrepancies and discrepancies were resolved. Attempted to call patient to patent counsel, did not get an answer. Home Medications dexamethasone 6 mg PO DAILY #7 tab 09/21/21 escitalopram oxalate 20 mg PO DAILY 09/21/21
--- NOTE | 2021-09-23 15:41 | CASEMGMT ---
NEERU PARRY Discharge Follow-Up Phone Call. Judy: 4 Strata: 1 Discharge Date: 09/22/21 Adm Dx: Acute hypoxemic respiratory failure secondary to COVID PNA Call to pt to inquire about how he has been doing since being discharged from the hospital. Pt states, I'm doing good...actually better. He was able to get the new prescription dexamethasone from [facility]. He denies having any questions about the medication or discharge instructions. He is aware of the appt on 10/13. The oxygen was delivered and states, They got everything set up and it's all good. His pulse ox has been mostly around 93% @ rest. He states he has been wearing the O2 w/exertion, stating he has not checked the pulse ox while ambulating but within a short time after sitting. He denies having any SOB w/exertion. Tiana BSN NEERU PARRY
== END 2021-09-22 15:11 | disposition home or self-care (01) | DRG 177 ==
LOC: ED 20:22 → MS3 22:00
PROVIDERS: Admitting Provider Hospitalist; Emergency Provider Student in an Organized Health Care Education/Training Program; PCP Family Medicine; Visit Provider Student in an Organized Health Care Education/Training Program
DX: U07.1 COVID-19 (principal); J12.82 Pneumonia due to coronavirus disease 2019; J96.01 Acute respiratory failure with hypoxia; E87.6 Hypokalemia; I10 Essential (primary) hypertension; F41.9 Anxiety disorder, unspecified; I27.21 Secondary pulmonary arterial hypertension; Z85.820 Personal history of malignant melanoma of skin; Z79.899 Other long term (current) drug therapy; Z87.891 Personal history of nicotine dependence; Z23 Encounter for immunization
CPT/HCPCS: 36415; 71045; 71275; 80053; 84484; 85025; 85379; 87635; 93005; 99285; J7040; J7050; Q9967; U0005; A4216; U0003

== ENCOUNTER → 2023-08-05 | Outpatient (CLI) | payer BC, SELFPAY ==
--- NOTE | 2023-08-05 10:09 | RAD_ITS ---
INDICATION: history of melanoma EXAMINATION/TECHNIQUE: X-RAY - XR Chest 2 Views COMPARISON: 09/21/2021 FINDINGS: LIFE-SUPPORT AND LINES: 1. None HEART AND VESSELS: The cardiac silhouette, pulmonary vasculature have normal appearance. No evidence of congestive failure. LUNGS AND PLEURAL SPACES: Lungs are clear. No focal infiltrate, consolidation or effusions. No evidence of pneumothorax. Minimal atelectasis in the retrocardiac LEFT lower lobe. MEDIASTINUM AND HILAR REGIONS: No masses adenopathy noted. No areas of calcification. Visualized upper airway is normal in position. BONY ELEMENTS: No acute bony changes noted. RAD/Chest PA and Lateral IMPRESSION: 1. Mild LEFT basilar atelectasis. Remaining lung zones are clear. 2. No consolidation, congestive failure or effusion. Electronically Signed: Madi Lloyd MD at 17:16 EDT ,
[2023-08-05 10:47] LABS: AST(SGOT) 20 U/L (15-37); Alanine Aminotransfer ALT/SGPT 47 U/L (16-61); Alkaline Phosphatase 68 U/L (45-117); Bilirubin, Direct 0.08 mg/dL (0.00-0.30); LDH 177 U/L (87-241)
[2023-08-06 15:08] LABS: Alkaline Phosphatase, Serum 64 IU/L (44-121); Bone Fraction 68 % (12-68); Intestinal Fraction 2 % (0-18); Liver Fraction 30 % (13-88)
== END | disposition home or self-care (01) ==
LOC: PAVLAB 10:00
PROVIDERS: PCP Family Medicine; Referring Provider Nurse Practitioner Family; Visit Provider Nurse Practitioner Family
DX: Z85.820 Personal history of malignant melanoma of skin (principal); Z98.890 Other specified postprocedural states
CPT/HCPCS: 36415; 71046; 82247; 82248; 83615; 84075; 84080; 84450; 84460